=== PATIENT | female | born 1995 | race Caucasian/White ===

== ENCOUNTER 2017-07-11 17:02 | Emergency (ER) | payer OTHER ==
[~2017-07-11] VITALS: Ht 154.9 cm; Wt 67.6 kg
[~2017-07-11 17:02] MED LIST: ANTIVERT25 MG PO; AUGMENTIN875 MG PO; ENDOCET 5-3251 EACH PO; FLAGYL500 MG PO; MONONESSA1 EACH PO; MOTRIN800 MG PO; PERCOCET 5/31 TABLET PO; PRENATAL TABLE1 EAC3 PO
[2017-07-11] MEDS ORDERED: TESSALON PERLE100 MG PO (20:12)
[2017-07-11] MEDS ORDERED: NASONEX17 GM BOTH NARES (20:12)
[2017-07-11 20:31] VITALS: BP 120/93
== END 2017-07-11 20:31 | disposition home or self-care (01) ==
LOC: EME 17:02
DX: J06.9 Acute upper respiratory infection, unspecified (principal); J30.2 Other seasonal allergic rhinitis; J02.8 Acute pharyngitis due to other specified organisms
CPT/HCPCS: 71020; 99281; 99284

== ENCOUNTER 2017-12-13 16:43 | Emergency (ER) | payer OTHER ==
[~2017-12-13] VITALS: Ht 154.9 cm; Wt 72.5 kg
[~2017-12-13 16:43] MED LIST changes: +FLONASE16 G1 BOTH NARES; +MUCINEX D ER T1 EACH PO; +NASONEX17 GM BOTH NARES; +TESSALON PERLE100 MG PO
[2017-12-13 16:54] VITALS: BP 143/87
[2017-12-13 17:10] LABS: APPEARANCE SL.HAZY ((CLEAR)); BILIRUBIN NEGATIVE; BLOOD NEGATIVE; COLOR YELLOW ((YELLOW)); GLUCOSE (STRIP) NEGATIVE; KETONES NEGATIVE; LEUKOCYTES LARGE; NITRITE NEGATIVE; PROTEIN (STRIP) NEGATIVE; SPECIFIC GRAVITY 1.011 (1.000-1.030); UROBILINOGEN 0.2 MG/DL (0.2-1.0)
[2017-12-13 17:15] LABS: HEMATOCRIT 38.8 % (36.0-46.0); HEMOGLOBIN 13.1 G/DL (11.9-15.5); MCH 32.5 PG (29.0-34.0); MCHC 33.8 G/DL (30.0-36.0); MCV 96.3 FL (83-99); PLATELET COUNT 279 K/uL (156-360); RBC DIS.WIDTH-CV 12.2 % (11.8-14.6); RBC DIS.WIDTH-SD 42.9 % (39-53); RED BLOOD COUNT 4.03 M/uL (3.80-5.20); WHITE BLOOD COUNT 9.6 K/uL (4.1-10.2)
[2017-12-13 17:18] LABS: BACTERIA RARE /HPF; CALCIUM OXALATE CRYSTALS 1+ /HPF; EPITHELIAL CELLS 4+ /HPF; MUCUS TRACE /LPF; RED BLOOD CELLS 0-5 /HPF (0-5); UCUL ADDED? YES
[2017-12-13 17:22] LABS: ALBUMIN 4.4 g/dL (3.2-4.8)
[2017-12-13 17:23] LABS: CHLORIDE 108 mEq/L (99-109); POTASSIUM 3.8 mEq/L (3.7-5.4); SODIUM 140 mEq/L (136-147)
[2017-12-13 17:25] LABS: GLUCOSE 80 mg/dL (70-99); TOTAL PROTEIN 7.2 g/dL (6.4-8.3)
[2017-12-13 17:27] LABS: TOTAL BILIRUBIN 0.1 mg/dL (0.0-1.0)
[2017-12-13 17:28] LABS: ALKALINE PHOSPHATASE 72 IU/L (3-129)
[2017-12-13 17:29] LABS: CREATININE 0.7 mg/dL (0.6-1.3); GFR ESTIMATE (CALCULATED) > 59 mL/min/
[2017-12-13 17:30] LABS: AST (GOT) 17 IU/L (2-34); UREA NITROGEN (BUN) 8 mg/dL (9-23)
[2017-12-13 17:32] LABS: ALT (GPT) 12 IU/L (3-49)
[2017-12-13 17:40] LABS: QUANTITATIVE HCG < 4.0 MIU/ML
== END 2017-12-13 20:20 | disposition left against medical advice (07) ==
LOC: EME 16:43
DX: R11.0 Nausea (principal); R10.31 Right lower quadrant pain; Z53.21 Procedure and treatment not carried out due to patient leaving prior to being seen by health care provider
CPT/HCPCS: 80053; 81003; 84702; 85027; 87086; 99281; 99284

== ENCOUNTER 2018-03-10 20:02 | Emergency (ER) | payer OTHER ==
[~2018-03-10] VITALS: Ht 157.5 cm; Wt 71.6 kg
[2018-03-10 22:11] LABS: HEMOGLOBIN 12.5 G/DL (11.9-15.5); MCH 32.9 PG (29.0-34.0); MCHC 34.7 G/DL (30.0-36.0); MCV 94.7 FL (83-99); PLATELET COUNT 227 K/uL (156-360); RBC DIS.WIDTH-CV 11.9 % (11.8-14.6); RBC DIS.WIDTH-SD 41.7 % (39-53); WHITE BLOOD COUNT 8.7 K/uL (4.1-10.2)
[2018-03-10 22:30] LABS: APPEARANCE CLEAR ((CLEAR)); BILIRUBIN NEGATIVE; BLOOD NEGATIVE; COLOR STRAW ((YELLOW)); GLUCOSE (STRIP) NEGATIVE; KETONES 5; LEUKOCYTES NEGATIVE; NITRITE NEGATIVE; PROTEIN (STRIP) NEGATIVE; SPECIFIC GRAVITY 1.006 (1.000-1.030); UCUL ADDED? NO; UROBILINOGEN 0.2 MG/DL (0.2-1.0)
[2018-03-10 22:33] LABS: CHLORIDE 107 mEq/L (99-109); POTASSIUM 4.1 mEq/L (3.7-5.4); SODIUM 138 mEq/L (136-147)
[2018-03-10 22:35] LABS: GLUCOSE 83 mg/dL (70-99)
[2018-03-10 22:39] LABS: CREATININE 0.6 mg/dL (0.6-1.3); GFR ESTIMATE (CALCULATED) > 59 mL/min/
[2018-03-10 22:40] LABS: UREA NITROGEN (BUN) 8 mg/dL (9-23)
[2018-03-10] MEDS ORDERED: ZOFRAN4 MG PO (23:06)
[2018-03-10 23:28] VITALS: BP 112/65
== END 2018-03-10 23:29 | disposition home or self-care (01) ==
LOC: EME 20:02
PROVIDERS: Nurse Practitioner Family
DX: O26.891 Other specified pregnancy related conditions, first trimester (principal); R42 Dizziness and giddiness; Z3A.10 10 weeks gestation of pregnancy; O99.341 Other mental disorders complicating pregnancy, first trimester; F31.9 Bipolar disorder, unspecified; F32.9 Major depressive disorder, single episode, unspecified
CPT/HCPCS: 80048; 81003; 85027; 99281; 99285; J2405; J7120

== ENCOUNTER 2018-06-06 13:35 | Emergency (ER) | payer OTHER ==
[~2018-06-06] VITALS: Ht 154.9 cm; Wt 74.5 kg
[~2018-06-06 13:35] MED LIST changes: +ZOFRAN4 MG PO
[2018-06-06 14:15] LABS: HEMATOCRIT 34.1 % (36.0-46.0); HEMOGLOBIN 11.6 G/DL (11.9-15.5); MCH 33.3 PG (29.0-34.0); PLATELET COUNT 265 K/uL (156-360); RBC DIS.WIDTH-CV 13.2 % (11.8-14.6); RBC DIS.WIDTH-SD 46.9 % (39-53); RED BLOOD COUNT 3.48 M/uL (3.80-5.20); WHITE BLOOD COUNT 9.8 K/uL (4.1-10.2)
[2018-06-06 14:23] LABS: CHLORIDE 109 mEq/L (99-109); POTASSIUM 3.3 mEq/L (3.7-5.4); SODIUM 140 mEq/L (136-147)
[2018-06-06 14:25] LABS: GLUCOSE 111 mg/dL (70-99)
[2018-06-06 14:29] LABS: CREATININE 0.6 mg/dL (0.6-1.3); GFR ESTIMATE (CALCULATED) > 59 mL/min/
[2018-06-06 14:30] LABS: UREA NITROGEN (BUN) 6 mg/dL (9-23)
[2018-06-06 14:38] LABS: QUANTITATIVE HCG 11835.8 MIU/ML
[2018-06-06 15:33] LABS: ALBUMIN 3.6 g/dL (3.2-4.8)
[2018-06-06 15:36] LABS: TOTAL PROTEIN 6.7 g/dL (6.4-8.3)
[2018-06-06 15:38] LABS: TOTAL BILIRUBIN 0.2 mg/dL (0.0-1.0)
[2018-06-06 15:39] LABS: ALKALINE PHOSPHATASE 92 IU/L (3-129)
[2018-06-06 15:41] LABS: AST (GOT) 15 IU/L (2-34)
[2018-06-06 15:42] LABS: ALT (GPT) 9 IU/L (3-49); DIRECT BILIRUBIN 0.1 mg/dL (0.0-0.3)
[2018-06-06 18:06] VITALS: BP 112/74
== END 2018-06-06 18:06 | disposition home or self-care (01) ==
LOC: EME 13:35
DX: O99.282 Endocrine, nutritional and metabolic diseases complicating pregnancy, second trimester (principal); E86.0 Dehydration; E87.6 Hypokalemia; O99.89 Other specified diseases and conditions complicating pregnancy, childbirth and the puerperium; R55 Syncope and collapse; O99.342 Other mental disorders complicating pregnancy, second trimester; F32.9 Major depressive disorder, single episode, unspecified; Z3A.22 22 weeks gestation of pregnancy
CPT/HCPCS: 80048; 80076; 84702; 85027; 93005; 99281; 99284; J7030